=== PATIENT | female | born 2000 | race African-American/Black ===

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

== ENCOUNTER 2020-12-03 09:07 | Emergency (ER) | payer BC, OTHER ==
[~2020-12-03] VITALS: Ht 152.4 cm; Wt 54.9 kg
[2020-12-03 09:07] VITALS: BP 108/74
== END 2020-12-03 12:21 | disposition home or self-care (01) ==
LOC: ER 09:07
DX: H10.9 Unspecified conjunctivitis (principal); E11.9 Type 2 diabetes mellitus without complications

== ENCOUNTER 2021-03-08 11:30 | Emergency (ER) | payer BC ==
[~2021-03-08] VITALS: Ht 152.4 cm; Wt 54.9 kg
[2021-03-08 11:42] VITALS: BP 145/88
[2021-03-08 12:22] LABS: Urine Bacteria NONE SEEN /hpf (None Seen); Urine Blood TRACE /uL (Negative); Urine Specific Gravity 1.005 (1.001-1.035); Urine WBC 1 /hpf (0 - 5)
== END 2021-03-08 12:45 | disposition home or self-care (01) ==
LOC: ER 11:30
DX: N93.9 Abnormal uterine and vaginal bleeding, unspecified (principal)
CPT/HCPCS: 81001; 81025

== ENCOUNTER → 2023-01-16 | Outpatient (CLI) | payer BC ==
[2023-01-16 07:58] LABS: Basophils # (auto) 0 10 ^3/uL (0-0.2); Basophils % (auto) 0.3 % (0.0-2.0); Eosinophils # (auto) 0.1 10 ^3/uL (0-0.8); Eosinophils % (auto) 1.5 % (0.0-7.0); Hematocrit 33.2 % (36.0-46.0); Lymphocytes # (auto) 1.3 10 ^3/uL (0.4-5.4); Lymphocytes % (auto) 18.6 % (10.0-50.0); Mean Corpuscular Hemoglobin 31.2 pg (28.0-32.0); Mean Corpuscular Hgb Conc. 33.2 g/dL (32.0-36.0); Mean Corpuscular Volume 93.9 fL (80.0-100.0); Monocytes # (auto) 0.4 10 ^3/uL (0-1.3); Monocytes % (auto) 6.3 % (0.0-12.0); Neutrophils % (auto) 73.3 % (37.0-80.0); Red Blood Cells 3.53 10^6/uL (4.0-5.20); Red Cell Distribution Width 13.5 % (11.8-14.3); White Blood Cell 6.8 10^3/uL (4.4-10.8)
== END | disposition home or self-care (01) ==
LOC: LAB 07:43
PROVIDERS: ATTEND Obstetrics & Gynecology
DX: Z34.80 Encounter for supervision of other normal pregnancy, unspecified trimester (principal)
CPT/HCPCS: 36415; 82951; 83036; 85025

== ENCOUNTER 2023-03-04 15:30 | Observation (INO) | payer BC | END 2023-03-04 16:45 | disposition home or self-care (01) | LOC: LDRP 15:30 → UNDOADMOB 15:30 → LDRP 15:44 → UNDODISOB 16:45 | PROVIDERS: ADMIT Obstetrics & Gynecology; ATTEND Obstetrics & Gynecology | DX: O26.893 Other specified pregnancy related conditions, third trimester (principal); R10.2 Pelvic and perineal pain; R11.0 Nausea; O34.63 Maternal care for abnormality of vagina, third trimester; N89.8 Other specified noninflammatory disorders of vagina; Z3A.35 35 weeks gestation of pregnancy; Z87.891 Personal history of nicotine dependence | CPT/HCPCS: 59025; 81002; 82948; G0378 ==

== ENCOUNTER 2023-03-23 18:12 | Observation (INO) | payer BC | END 2023-03-23 21:05 | disposition left against medical advice (07) | LOC: LDRP 18:12 | PROVIDERS: ADMIT Obstetrics & Gynecology; ATTEND Obstetrics & Gynecology | DX: O60.03 Preterm labor without delivery, third trimester (principal); Z3A.38 38 weeks gestation of pregnancy | CPT/HCPCS: 59025; 81002; 94760; G0378 ==

== ENCOUNTER 2023-03-25 06:58 | Observation (INO) | payer BC ==
[2023-03-25] MEDS ORDERED: METR-344 PO (23:49)
== END 2023-03-25 08:05 | disposition home or self-care (01) ==
LOC: LDRP 06:58
PROVIDERS: ADMIT Obstetrics & Gynecology; ATTEND Obstetrics & Gynecology
DX: O47.1 False labor at or after 37 completed weeks of gestation (principal); O62.9 Abnormality of forces of labor, unspecified; O26.853 Spotting complicating pregnancy, third trimester; O26.893 Other specified pregnancy related conditions, third trimester; N89.8 Other specified noninflammatory disorders of vagina; R11.0 Nausea; Z3A.38 38 weeks gestation of pregnancy
CPT/HCPCS: 59025; 81002; 94760; G0378

== ENCOUNTER 2023-03-25 20:57 | Inpatient (IN) | payer BC ==
[~2023-03-25] VITALS: Ht 152.4 cm; Wt 69.4 kg
[2023-03-25 21:49] LABS: Fern Testing Positive
[2023-03-25 22:24] LABS: Vaginal Trichomonas Not Present
[2023-03-25 22:25] LABS: Vaginal Bacteria Rare; Vaginal Clue Cells Few; Vaginal Epithelial Cells Few
[2023-03-25] MEDS ORDERED: PROMETHAZINE HCL 25 MG/ML 1ML IV PRN (22:30)
[2023-03-25] MEDS ORDERED: LIDOCAINE 2%HCL (LOCAL ANESTH.) INJ 20ML MDV IJ PRN (22:30)
[2023-03-25] MEDS ORDERED: BUTORPHANOL TARTRATE 2 MG/1 ML VIAL IV PRN ×2 (22:30)
[2023-03-25] MEDS: NALOXONE HCL 0.4 MG/ML VIAL IV ONE (23:15)
[2023-03-25] MEDS: LIDOCAINE HCL 2 %PF INJ 10ML AMP IJ ONE (23:15)
[2023-03-25] MEDS: ePHEDrine SULFATE 50 MG/ML AMP IV ONE (23:15)
[2023-03-25 23:25] LABS: Basophils # (auto) 0 10 ^3/uL (0-0.2); Basophils % (auto) 0.3 % (0.0-2.0); Eosinophils # (auto) 0 10 ^3/uL (0-0.8); Eosinophils % (auto) 0.2 % (0.0-7.0); Hematocrit 33.8 % (36.0-46.0); Hemoglobin 11.2 g/dL (12.2-16.2); Lymphocytes # (auto) 1.6 10 ^3/uL (0.4-5.4); Mean Corpuscular Hemoglobin 29.7 pg (28.0-32.0); Mean Corpuscular Hgb Conc. 33.3 g/dL (32.0-36.0); Mean Corpuscular Volume 89.4 fL (80.0-100.0); Monocytes # (auto) 0.7 10 ^3/uL (0-1.3); Monocytes % (auto) 6.5 % (0.0-12.0); Neutrophils # (auto) 7.9 10 ^3/uL (1.6-8.6); Nucleated Red Blood Cells % 0.1 %; Red Blood Cells 3.78 10^6/uL (4.0-5.20); Red Cell Distribution Width 13.6 % (11.8-14.3); White Blood Cell 10.3 10^3/uL (4.4-10.8)
[2023-03-25 23:29] LABS: Urine Bacteria NONE SEEN /hpf (None Seen); Urine Blood 1+ /uL (Negative); Urine Clarity Clear (Clear); Urine Color Colorless (Yellow); Urine Protein, UAD Negative (Negative); Urine Urobilinogen Normal (Negative); Urine WBC 3 /hpf (0 - 5); Urine pH 7.5 (5.0-8.0)
[2023-03-25 23:33] LABS: Amphetamine Screen, Urine Neg (NEGATIVE); Barbiturate Scree,Urine Neg (NEGATIVE); Benzodiazephine Screen, Urine Neg (NEGATIVE); Cannabinoid Screen, Urine Neg (NEGATIVE); Cocaine Screen, Urine Neg (NEGATIVE); Opiate Scree,Urine Neg (NEGATIVE); Phencyclidine Screen, Urine Neg (NEGATIVE)
[2023-03-25 23:36] LABS: Alanine Aminotransferase 12 U/L (7-40); Albumin 3.8 g/dL (3.2-4.8); Alkaline Phosphatase 149 U/L (46-116); Anion Gap 9 (5-15); Aspartate Aminotransferase 16 U/L (13-40); BUN/Creatinine Ratio 10.5 (10.0-20.0); Blood Urea Nitrogen 6 mg/dL (9-23); Calcium 8.9 mg/dL (8.7-10.4); Carbon Dioxide 22 mmol/L (20-30); Chloride 106 mmol/L (98-107); Glucose 85 mg/dL (74-106); INR 0.92 (0.9-1.15); Partial Thromboplastin Time 28.9 SEC (24.5-34.5); Potassium 3.6 mmol/L (3.5-5.1); Prothrombin Time 9.7 sec (9.3-11.8); Sodium 137 mmol/L (136-145)
[2023-03-25 23:37] LABS: Bilirubin, Total 0.4 mg/dL (0.2-1.0); Total Protein 6.8 g/dL (5.7-8.2)
[2023-03-25] MEDS ORDERED: METR-344 PO (23:49)
[2023-03-26] MEDS: ROPIVACAINE HCL 100 ML ONE (00:36)
[2023-03-26] MEDS: fentaNYL CITRATE 100 MCG/2 ML VL IV ONE (00:40)
[2023-03-26] MEDS: LACTATED RINGER'S 1,000 ML IV ONE (00:40)
[2023-03-26] MEDS: PENICILLIN G POT 5MIL/D5 50ML 50 ML IV ONE ×2 (00:54)
[2023-03-26] MEDS: LACT. RINGERS/OXYTOCIN 20UNITS 1,000 ML IV SCH (01:08)
[2023-03-26] MEDS: PENICILLIN G POTASSIUM 2,500,000 UNITS in D5W 5% 50 ML IV SCH ×2 (03:45→04:54)
[2023-03-26] MEDS: PENICILLIN G POT 5MILLION UNIT VIAL ONE (04:42)
[2023-03-26] MEDS: LACTATED RINGER'S 1,000 ML IV SCH (06:30)
[2023-03-26] MEDS ORDERED: ACETAMINOPHEN 325 MG TAB PO PRN (10:30)
[2023-03-26 10:45] VITALS: PULSE 110; RESP 16
[2023-03-26] MEDS: LACT. RINGERS/OXYTOCIN 20UNITS 500 ML IV ONE ×2 (10:58→10:59)
[2023-03-26] MEDS: ONDANSETRON HCL 4 MG/2 ML VIAL ONE (10:59)
[2023-03-26] MEDS: DIPHENOXYLATE W/ATROPINE 2.5 MG TAB ONE (10:59)
[2023-03-26] MEDS: miSOPROStol 100 mcg TAB ONE (11:00)
[2023-03-26] MEDS: CARBOPROST TROMETHAMINE 250 MCG/1ML VIAL IM ONE (11:00)
[2023-03-26] MEDS: METHYLERGONOVINE MALEATE 0.2 MG/ML AMP IM ONE (11:00)
[2023-03-26] MEDS: ROPIVACAINE HCL 100 ML EPI ONE (11:03)
[2023-03-26] MEDS: PHISODERM TOP SOLN 240ML BTL TOP PRN (11:06)
[2023-03-26] MEDS: DERMOPLAST 60ML BOTTLE TOP PRN (11:06)
[2023-03-26] MEDS: WITCH HAZEL-GLYCERIN PAD TOP PRN (11:07)
[2023-03-26] MEDS: ceFAZolin 1GM/50ML 50 ML IV SCH (14:05)
[2023-03-26 14:42] VITALS: BP 109/62; PULSE 62; RESP 16; TEMP 98.4; O2SAT 98
[2023-03-26 19:00] VITALS: BP 104/51; PULSE 82; RESP 18; TEMP 98.3; O2SAT 97
[2023-03-26] MEDS: DOCUSATE SOD 100 MG CAP PO SCH (21:58)
[2023-03-26] MEDS: IBUPROFEN 600 MG TAB PO PRN (21:58)
[2023-03-26 23:23] VITALS: BP 103/54; PULSE 66; TEMP 98.1; O2SAT 97
[2023-03-27] MEDS ORDERED: DIBU1OIN11 RE (02:09)
[2023-03-27] MEDS ORDERED: PREN1TAB PO (02:09)
[2023-03-27] MEDS ORDERED: DOCU240C23 PO (02:09)
[2023-03-27] MEDS ORDERED: HYDR5CRE3 PR (02:09)
[2023-03-27] MEDS ORDERED: IBU600T PO (02:09)
[2023-03-27 03:00] VITALS: BP 101/57; PULSE 82; RESP 16; TEMP 97.8; O2SAT 96
[2023-03-27 07:00] VITALS: BP 98/64; PULSE 78; RESP 16; RESP 18; TEMP 97.7; O2SAT 98
[2023-03-27 07:07] LABS: RPR Non Reactive (Non Reactive)
[2023-03-27 07:46] LABS: Basophils # (auto) 0 10 ^3/uL (0-0.2); Basophils % (auto) 0.3 % (0.0-2.0); Eosinophils # (auto) 0.1 10 ^3/uL (0-0.8); Eosinophils % (auto) 0.7 % (0.0-7.0); Hematocrit 26.8 % (36.0-46.0); Hemoglobin 9.1 g/dL (12.2-16.2); Lymphocytes # (auto) 1.9 10 ^3/uL (0.4-5.4); Lymphocytes % (auto) 22.5 % (10.0-50.0); Mean Corpuscular Hemoglobin 30.6 pg (28.0-32.0); Mean Corpuscular Hgb Conc. 33.9 g/dL (32.0-36.0); Mean Corpuscular Volume 90.2 fL (80.0-100.0); Monocytes # (auto) 0.6 10 ^3/uL (0-1.3); Monocytes % (auto) 7.3 % (0.0-12.0); Neutrophils # (auto) 5.7 10 ^3/uL (1.6-8.6); Neutrophils % (auto) 69.2 % (37.0-80.0); Red Blood Cells 2.97 10^6/uL (4.0-5.20); Red Cell Distribution Width 13.6 % (11.8-14.3); White Blood Cell 8.3 10^3/uL (4.4-10.8)
[2023-03-27] MEDS ORDERED: DOCUSATE CALCIUM 240 MG CAP PO SCH (10:00)
[2023-03-27] MEDS ORDERED: TETANUS-DIPTH-ACEL PERTUSSIS 0.5ML SYR Tdap IM ONE (10:15)
[2023-03-27 10:24] VITALS: TEMP 36.5
[2023-03-27 10:35] VITALS: BP 103/59; PULSE 86; RESP 16; TEMP 97.9; O2SAT 96
[2023-03-28 20:06] LABS: Treponema pallidum Ab (FTA-Ab) Non Reactive (Non Reactive)
== END 2023-03-27 12:05 | disposition home or self-care (01) | DRG 807 ==
LOC: INTOOBSV 20:57 → UNDOADMOB 20:57 → OBSVTOIN 20:57 → LDRP 20:57 → OBSVTOIN 22:54 → LDRP 22:54
PROVIDERS: ADMIT Obstetrics & Gynecology; ATTEND Obstetrics & Gynecology
PROC: 10E0XZZ Delivery of Products of Conception, External Approach (ICD-10-PCS; principal; 2023-03-26)
PROC: 0KQM0ZZ Repair Perineum Muscle, Open Approach (ICD-10-PCS; 2023-03-26)
PROC: 0W8NXZZ Division of Female Perineum, External Approach (ICD-10-PCS; 2023-03-26)
PROC: 3E0R3BZ Introduction of Anesthetic Agent into Spinal Canal, Percutaneous Approach (ICD-10-PCS; 2023-03-26)
PROC: 00HU33Z Insertion of Infusion Device into Spinal Canal, Percutaneous Approach (ICD-10-PCS; 2023-03-26)
DX: O99.62 Diseases of the digestive system complicating childbirth (principal); Z37.0 Single live birth; O70.1 Second degree perineal laceration during delivery; K64.4 Residual hemorrhoidal skin tags; Z3A.38 38 weeks gestation of pregnancy
CPT/HCPCS: 36415; 59025; 59409; 62282; 80053; 80307; 81001; 81002; 84112; 85025; 85610; 85730; 86592; 86850; 86900; 86901; 87210; 94760; 94762; 96360; 96361; 96365; 96366; 96372; G0378; J2405; J2540; J2590; J7060

== ENCOUNTER → 2023-03-25 | Outpatient (CLI) | payer BC ==
[~2023-03-25] MED LIST: DIBU1OIN11 RE; DOCU240C23 PO; HYDR5CRE3 PR; IBU600T PO; METR-344 PO; PREN1TAB PO
[2023-03-25 09:47] LABS: Basophils # (auto) 0 10 ^3/uL (0-0.2); Basophils % (auto) 0.4 % (0.0-2.0); Eosinophils # (auto) 0 10 ^3/uL (0-0.8); Eosinophils % (auto) 0.3 % (0.0-7.0); Hematocrit 34.7 % (36.0-46.0); Hemoglobin 11.5 g/dL (12.2-16.2); Lymphocytes # (auto) 1.2 10 ^3/uL (0.4-5.4); Lymphocytes % (auto) 16.3 % (10.0-50.0); Mean Corpuscular Hemoglobin 29.9 pg (28.0-32.0); Mean Corpuscular Hgb Conc. 33.1 g/dL (32.0-36.0); Mean Corpuscular Volume 90.3 fL (80.0-100.0); Monocytes # (auto) 0.5 10 ^3/uL (0-1.3); Monocytes % (auto) 6.7 % (0.0-12.0); Neutrophils # (auto) 5.7 10 ^3/uL (1.6-8.6); Neutrophils % (auto) 76.3 % (37.0-80.0); Red Blood Cells 3.84 10^6/uL (4.0-5.20); Red Cell Distribution Width 13.2 % (11.8-14.3); White Blood Cell 7.4 10^3/uL (4.4-10.8)
[2023-03-26 08:06] LABS: RPR Non Reactive (Non Reactive)
== END | disposition home or self-care (01) ==
LOC: LAB 09:20
PROVIDERS: ATTEND Obstetrics & Gynecology
DX: Z11.3 Encounter for screening for infections with a predominantly sexual mode of transmission (principal)
CPT/HCPCS: 36415; 83036; 85025; 86592

== ENCOUNTER 2023-08-11 07:37 | Emergency (ER) | payer BC ==
[~2023-08-11] VITALS: Ht 152.4 cm; Wt 69.6 kg
[2023-08-11 07:57] VITALS: BP 125/93; PULSE 74; RESP 16; TEMP 98.7; O2SAT 98
[2023-08-11] MEDS ORDERED: IBUP-1454 PO (08:24)
== END 2023-08-11 08:24 | disposition home or self-care (01) ==
LOC: ER 07:37
DX: B08.4 Enteroviral vesicular stomatitis with exanthem (principal); Z88.6 Allergy status to analgesic agent; Z88.8 Allergy status to other drugs, medicaments and biological substances; Z79.899 Other long term (current) drug therapy